=== PATIENT | female | born 1980 ===

== ENCOUNTER 2021-09-01 09:06 | Outpatient (CLI) | payer OTHER | END 2021-09-01 10:00 | disposition home or self-care (01) | LOC: PRENATAL 09:06 | PROVIDERS: ATTEND Obstetrics & Gynecology Maternal & Fetal Medicine | DX: O35.0XX0 Maternal care for (suspected) central nervous system malformation in fetus, not applicable or unspecified (principal); O35.3XX0 Maternal care for (suspected) damage to fetus from viral disease in mother, not applicable or unspecified; O09.529 Supervision of elderly multigravida, unspecified trimester; O34.219 Maternal care for unspecified type scar from previous cesarean delivery; Z3A.22 22 weeks gestation of pregnancy ==

== ENCOUNTER 2021-12-18 09:45 | Inpatient (IN) | payer OTHER ==
[~2021-12-18] VITALS: Ht 157.5 cm; Wt 2.3 kg
[2021-12-22] MEDS ORDERED: DOXYLAMINE-PYR1 EACH (09:48)
== END 2021-12-24 15:32 | disposition home or self-care (01) | DRG 788 ==
LOC: OB/GYN 12-21 09:45 → O/R 12-21 13:44 → OB/GYN 12-21 18:51
PROVIDERS: ADMIT Obstetrics & Gynecology; ATTEND Obstetrics & Gynecology
PROC: 4A1HXCZ Monitoring of Products of Conception, Cardiac Rate, External Approach (ICD-10-PCS; 2021-12-21)
PROC: 10D00Z1 Extraction of Products of Conception, Low, Open Approach (ICD-10-PCS; principal; 2021-12-21 15:00)
DX: O34.29 Maternal care due to uterine scar from other previous surgery (principal); Z3A.38 38 weeks gestation of pregnancy; Z37.0 Single live birth; Z20.822 Contact with and (suspected) exposure to COVID-19